=== PATIENT | male | born 1960 | race African-American/Black ===

== ENCOUNTER → 2016-09-27 | Outpatient (CLI) | payer OTHER ==
[~2016-09-27] MED LIST: ACID RELIEF200 MG; BACTRIM DS TABL1 TA1 PO; BENTYL20 MG DOB; DEXILANT60 MG PO; FLEXERIL PO; FLOMAX0.4 M1 DOB; LINZESS290 MCG PO; LORTAB 5/500 TA1 TA1 PO; MEDROL PO; MIRALAX17 GM DOB; MOBIC PO; MULTI-DAY VITAM1 TAB PO; NEXIUM PO; OMEPRAZOLE40 MG; PHENERGAN25 MG PO; PREDNISONE PO; PRILOSEC PO; PRILOSEC40 MG PO; TORADOL10 MG PO; VICODIN 5/500 T1 TAB PO; VICODIN PO; ZANTAC PO
--- NOTE | ~2016-09-27 | CR63 ---
[facility] A Service of [facility] & [facility] RADIOLOGY TEXT RESULTS PATIENT: DAKOTA MONK LOCATION: [facility] : 56 UNIT #: [id number] AGE: [address]: April Ge MD SEX: M ORDER DR: [id number] [facility] [address] [place], [place] [address] [id number] O MR#: [id number] Acc #: [id number] NAME: DAKOTA MONK : 1960 SEX: M STUDY DATE/TIME: 09/27/2016 2:09 UNIT: [facility] ROOM: STUDY DESCRIPTION: CR Chest 2 View Attending Physician: April Ge M.D. Ordering Physician: April Ge M.D. Primary Care Physician: April Ge M.D. MEDICAL IMAGING REPORT This report is preliminary unless electronic signature is present EXAM Two-view chest INDICATION Shortness of air for the past 3 days. PROCEDURE Frontal and lateral views of the chest. FINDINGS Heart size is normal. Lungs are clear. No pleural fluid. No pneumothorax. IMPRESSION 1. No active process. 2. Not mentioned above, the diaphragm is flattened suggesting hyperexpansion, COPD. Dictated by... Gt Epstein M.D. THIS IS AN ELECTRONICALLY VERIFIED REPORT Gt Epstein M.D. at 09/27/2016 4:52 PM Reece TD: 09/27/2016 10:18 JOB #: [id number] MEDICAL IMAGING REPORT COPY
== END | disposition home or self-care (01) ==
LOC: CRAD 02:03
DX: R06.02 Shortness of breath (principal); R06.2 Wheezing; J44.9 Chronic obstructive pulmonary disease, unspecified
CPT/HCPCS: 71020